=== PATIENT | male | born 1935 | race Caucasian/White ===

== ENCOUNTER → 2018-04-27 13:03 | Outpatient (CLI) | payer MEDICARE, SELFPAY ==
[2018-04-27 14:18] LABS: BUN Creatinine Ratio 15.8 (6-22); Blood Urea Nitrogen 30 mg/dL (9-20); Calcium 9.7 mg/dL (8.4-10.2); Carbon Dioxide 28 mmol/L (22-32); Chloride 109 mmol/L (98-107); Estimated Glomerular Filt Rate 34.1 mL/min (>60); Glucose 106 mg/dL (80-110); HEMOLYSIS 20 (0-50); Potassium 5.1 mmol/L (3.4-5.1); Sodium 144 mmol/L (137-145)
== END ==
PROVIDERS: PCP Internal Medicine; Visit Provider Internal Medicine
DX: N18.3 Chronic kidney disease, stage 3 (moderate) (principal)
CPT/HCPCS: 36415; 80048

== ENCOUNTER → 2018-12-30 16:48 | Outpatient (CLI) | payer MEDICARE, SELFPAY ==
[2018-12-30 18:01] LABS: Alanine Aminotransferase 26 IU/L (21-72); Albumin 3.7 g/dL (3.5-5.0); Albumin Globulin Ratio 1.3 (1.0-2.8); Alkaline Phosphatase 93 U/L (38-126); Aspartate Aminotransferase 23 IU/L (17-59); BUN Creatinine Ratio 18.9 (6-22); Bilirubin Total 0.6 mg/dL (0.2-1.3); Blood Urea Nitrogen 36 mg/dL (9-20); Calcium 9.6 mg/dL (8.4-10.2); Carbon Dioxide 23 mmol/L (22-32); Chloride 108 mmol/L (98-107); Globulin 2.9 g/dL (1.7-4.1); Glucose 150 mg/dL (80-110); HEMOLYSIS < 15 (0-50); Potassium 4.7 mmol/L (3.4-5.1); Sodium 140 mmol/L (137-145); Total Protein 6.6 g/dL (6.3-8.2)
== END ==
PROVIDERS: PCP Internal Medicine; Visit Provider Internal Medicine
DX: I10 Essential (primary) hypertension (principal)
CPT/HCPCS: 36415; 80053

== ENCOUNTER → 2019-02-02 14:48 | Outpatient (CLI) | payer MEDICARE, SELFPAY ==
--- NOTE | 2019-02-02 14:50 | DI.ECHO.S_ITS ---
[facility] +---------+ : : [address] : [address] : : : : [id number] : : : : Phone: [phone] Echocardiogram Report + + :Name: DANIEL TYLER Study Date: 02/02/2019 Height: 73 in : :[facility] Weight: 208 lb : : Gender: Male BSA: 2.2 m2 : :: 1935 Age: 83 yrs BP: 133/64 mmHg: :Reason For Study: DYSPNEA : : Performed By: Javier Blandon : :Referring: KATHERINE WEBER R : + + Interpretation Summary 1) Normal left ventricular thickness, size, wall motion, and systolic function (EF 60-65%). 2) Normal right ventricular size and function. 3) No significant valvular abnormalities. 4) The right ventricular systolic pressure is estimated to be at least 32 mmHg based on an estimated right atrial pressure of 3 mm Hg. 5) No prior Echo available for comparison. Procedure: A two-dimensional transthoracic echocardiogram with color flow and Doppler was performed. The study quality was technically adequate. There is no prior echocardiogram noted for this patient. The patient was in normal sinus rhythm during the exam. The patient had frequent PACs during the exam. The patient had frequent PVCs during the exam. Left Ventricle: The left ventricle is normal in size. There is normal left ventricular wall thickness. The ejection fraction is estimated to be 60-65%. There are no focal wall motion abnormalities. Diastolic parameters suggest a relaxation abnormality of the left ventricle, consistent with probable normal filling pressures. Right Ventricle: The right ventricle is normal in size and function. Atria: The left atrium is moderately dilated. Right atrial size is normal. The interatrial septum is intact with no evidence for an atrial septal defect. Mitral Valve: The mitral valve is normal in structure and function. There is trace mitral regurgitation. Aortic Valve: The aortic valve is trileaflet. The aortic valve is mildly calcified. There is discrete nodular thickening of the left coronary cusp. There is no aortic valve stenosis. No aortic regurgitation is present. Tricuspid Valve: The tricuspid valve is normal in structure and function. There is mild tricuspid regurgitation. The right ventricular systolic pressure is estimated to be at least 32 mmHg based on an estimated right atrial pressure of 3 mm Hg. Pulmonic Valve: The pulmonic valve is normal in structure and function. There is mild pulmonic regurgitation. Great Vessels: The aortic root is normal size. The dimensions of the ascending aorta are normal. The pulmonary artery is normal size. The IVC is of normal diameter and collapses greater than 50% with a sniff. This suggests a low right atrial pressure of 3 mm Hg. Pericardium/ Pleura There is no pericardial effusion. There is no pleural effusion. MMode/2D Measurements & Calculations LVIDd: 3.7 cm LVOT diam: 2.0 cm LVIDs: 2.3 cm Ao root diam: 3.5 cm FS: 36.5 % Aortic Jxn: 2.8 cm EPSS: 0.39 cm asc Aorta Diam: 3.3 cm IVSd: 1.0 cm Ao Arch Diam (Prox Trans): 3.3 cm LVPWd: 0.96 cm LV garcia. diameter/BSA (cm/m^2): 1.7 LV sys. diameter/BSA (cm/m^2): 1.1 LA dimension: 3.3 cm RA long axis: 5.8 cm LA A2 area: 22.3 cm2 RA area: 19.2 cm2 LA A4 area: 24.9 cm2 RA vol: 54.3 ml LA length (vol): 6.2 cm RA : 24.8 ml/m2 LA vol: 76.3 ml IVC diam: 1.2 cm LA vol index: 34.9 ml/m2 Doppler Measurements & Calculations Ao V2 max: 180.1 cm/sec LVOT Max Arsenio: 128.3 cm/sec Ao V2 mean: 134.2 cm/sec LV V1 max P.6 mmHg Ao max P.0 mmHg LV V1 VTI: 27.9 cm Ao mean P.8 mmHg LANNY(I,D): 2.8 cm2 Ao V2 VTI: 32.8 cm LANNY(V,D): 2.3 cm2 sev ratio: 0.85 LANNY indexed to BSA (cm^2/m^2): 1.3 MV E max arsenio: 56.8 cm/sec TR max arsenio: 271.0 cm/sec MV A max arsenio: 75.3 cm/sec TR max P.4 mmHg MV E/A: 0.75 PA V2 max: 104.8 cm/sec Med Peak E' Arsenio: 5.6 cm/sec PA V2 mean: 72.7 cm/sec E/E' med: 10.2 PA mean P.4 mmHg Lat Peak E' Arsenio: 7.3 cm/sec PA pr(Accel): 34.1 mmHg E/E' lat: 7.8 PA Accel Time: 0.07 sec E/e' average: 9.0 MV dec time: 0.27 sec SV(LVOT): 91.0 ml Reading Physician:05:30 PM
== END ==
PROVIDERS: PCP Internal Medicine; Visit Provider Internal Medicine
DX: I07.1 Rheumatic tricuspid insufficiency (principal); I37.1 Nonrheumatic pulmonary valve insufficiency; R06.00 Dyspnea, unspecified
CPT/HCPCS: 93306

== ENCOUNTER → 2020-03-28 10:03 | Outpatient (CLI) | payer MEDICARE, SELFPAY ==
[2020-03-28 12:57] LABS: Alanine Aminotransferase 13 IU/L (<50); Albumin 3.8 g/dL (3.5-5.0); Albumin Globulin Ratio 1.3 (1.0-2.8); Alkaline Phosphatase 92 U/L (38-126); Aspartate Aminotransferase 25 IU/L (17-59); BUN Creatinine Ratio 15.4 (6-22); Bilirubin Total 0.7 mg/dL (0.2-1.3); Blood Urea Nitrogen 29 mg/dL (9-20); Calcium 9.8 mg/dL (8.4-10.2); Carbon Dioxide 24 mmol/L (22-32); Chloride 109 mmol/L (98-107); Cholesterol 164 mg/dL (140-199); Estimated Glomerular Filt Rate 34.4 mL/min (>60); Glucose 102 mg/dL (80-110); HDL Cholesterol 50 mg/dL (40-60); HEMOLYSIS < 15 (0-50); LDL Cholesterol Calculated 96 mg/dL (<100); Potassium 4.8 mmol/L (3.4-5.1); Sodium 140 mmol/L (137-145); Total Protein 6.8 g/dL (6.3-8.2); Triglycerides 89 mg/dL (35-150)
== END ==
PROVIDERS: PCP Internal Medicine; Referring Provider Internal Medicine; Visit Provider Internal Medicine
DX: I10 Essential (primary) hypertension (principal); J84.9 Interstitial pulmonary disease, unspecified; N18.3 Chronic kidney disease, stage 3 (moderate); R73.9 Hyperglycemia, unspecified
CPT/HCPCS: 36415; 80053; 80061

== ENCOUNTER → 2020-04-17 13:58 | Outpatient (CLI) | payer MEDICARE, SELFPAY ==
[2020-04-18 10:09] LABS: COVID19 Sendout Not Detected (Not Detect)
== END ==
PROVIDERS: Family Provider Internal Medicine; PCP Internal Medicine; Visit Provider Physician Assistant
DX: Z11.59 Encounter for screening for other viral diseases (principal)
CPT/HCPCS: 87635

== ENCOUNTER → 2020-04-20 10:36 | Outpatient (CLI) | payer MEDICARE, MEDICAID, SELFPAY ==
--- NOTE | 2020-04-21 09:03 | PM.PFT.1 ---
Pulmonary Function Test Referral & Results Date Patient Seen: 04/20/20 Requesting provider: Franco Palma Indication: Interstitial lung disease Results: The spirometry demonstrates an FVC of 3.61 L which is 76% of predicted. The FEV1 was measured at 3.06 L which is 91% of predicted. The FEV1/FVC ratio was 85 which is 119% of predicted. Following the administration of bronchodilator there was no appreciable change. Lung volumes show an SVC of 3.63 L which is 71 of predicted. The diffusing capacity was measured at 15.29 which is 39% of predicted. No hemoglobin value was provided, so no correction for potential anemia could be made, if appropriate. The maximum voluntary ventilation was normal Interpretation: This study demonstrates essentially normal spirometry but significantly reduced diffusing capacity. Compared to PFTs performed in February 2017, spirometry is unchanged but diffusing capacity has further declined from previous level of 60% of predicted to current 39% of predicted. Clinical correlation suggested
== END ==
PROVIDERS: Family Provider Internal Medicine; PCP Internal Medicine; Referring Provider Internal Medicine; Visit Provider Internal Medicine
DX: J84.89 Other specified interstitial pulmonary diseases (principal); R00.1 Bradycardia, unspecified
CPT/HCPCS: 0296T; 94060; 94726; 94729

== ENCOUNTER → 2020-04-20 12:25 | Outpatient (CLI) | payer MEDICARE, MEDICAID, SELFPAY ==
--- NOTE | 2020-05-10 09:52 | P.HOLT.S_ITS ---
Help Desk Administrator Report Referral & Results Date Patient Seen: 04/20/20 Requesting provider: Franco Palma Indication: bradycardia Duration of monitoring (days): 7 Diary information: there were 6 patient triggered events and no patient diary entries Patient triggered events were associated with sinus rhythm, and PACs. (Computer identified some of these as junctional rhythm but were PACs upon closer review) Data: minimum heart rate was 45 beats per minute at 08:30 on 04/25/2020 Maximum sinus heart rate was 112 beats per minute at 14:14 on 04/26/2020 Maximum overall heart rate was 174 beats per minute at 19:55 on 04/25/2020 during a 5 beat run of nonsustained ventricular tachycardia Patient had approximately 12.3% of identified beats as PACs Less than 1% of identified beats were PVCs Patient to runs of nonsustained ventricular tachycardia the fastest being the 5 beat run at 174 beats per minute as above, this was also the longest run. There are 10 runs of SVT / atrial tachycardia with the fastest being 4 beats at 139 beats per minute the longest being 14 beats at 92 beats per minute which suggest atrial tachycardia Impression: Patient with significant supraventricular dysrhythmias as above. Patient was not overly bradycardic. there were 2 nonsustained runs of possible ventricular tachycardia Clinical correlation suggested
== END ==
PROVIDERS: Family Provider Internal Medicine; PCP Internal Medicine; Referring Provider Internal Medicine; Visit Provider Internal Medicine
DX: R00.1 Bradycardia, unspecified (principal)
CPT/HCPCS: 0296T; 0298T

== ENCOUNTER → 2020-10-30 14:10 | Outpatient (CLI) | payer MEDICARE, MEDICAID, SELFPAY ==
[2020-10-30] MEDS: COVID-19 VACC, Ad26(JANSSEN)/PF 0.5 ML IM (14:23)
== END ==
PROVIDERS: Family Provider Internal Medicine; PCP Internal Medicine; Visit Provider Internal Medicine
DX: Z23 Encounter for immunization (principal)
CPT/HCPCS: 0031A; 91303

== ENCOUNTER 2020-12-24 04:25 | Emergency (ER) | payer MEDICARE, MEDICAID, SELFPAY ==
[2020-12-24] VITALS (9 sets, daily range): BP systolic 116–219; BP diastolic 75–158; PULSE 89–114; RESP 24; O2SAT 95–97; BMI 26.2
--- NOTE | 2020-12-24 04:43 | PC.NURSE ---
Patient states he has not been having adequate indwelling catheter drainage for past few days.
--- NOTE | 2020-12-24 05:32 | ED.MALEGU ---
HPI - Male Genitourinary <Charlie Chisholm MD - Last Filed: 12/24/20 10:01> General Chief complaint: Urogenital-Male Stated complaint: Urinary Cath Pain Time Seen by Provider: 12/24/20 04:46 Source: patient and EMS Mode of arrival: EMS Limitations: no limitations History of Present Illness HPI Narrative: The patient has required a Robertson catheter since 2018. He cannot urinate. The catheter was changed November 29. Over the past couple days he has been having lower abdominal discomfort. He had no urine output out the catheter yesterday, he is here now with severe lower abdominal pain. He has no nausea or vomiting. He has no diarrhea. He has no fever. Related Data Previous Rx's Medication Instructions Recorded hydrocodone 5 mg-acetaminophen 325 See Rx Instructions PO Q4H PRN #30 04/27/20 mg tablet tab lansoprazole 30 mg capsule,delayed 30 mg PO BID #180 cap 04/27/20 release lorazepam 0.5 mg tablet See Rx Instructions .ROUTE 04/27/20 .COMPLEX PRN #30 tab Disabled Parking #1 ea 10/13/20 hydrocortisone 2.5 % topical cream 1 applic IN BID-QID PRN #30 g 12/14/20 with perineal applicator cefdinir 300 mg PO Q12H #20 cap 12/24/20 Allergies Allergy/AdvReac Type Severity Reaction Status Date / Time clindamycin [CLINDAMYCIN] Allergy Mild DIARRHEA Verified 10/13/20 13:31 Sulfa (Sulfonamide Allergy Mild GI UPSET Verified 10/13/20 13:31 Antibiotics) [SULFA (SULFONAMIDE ANTIBIOTICS)] levofloxacin [From LEVAQUIN] Allergy Unknown Verified 10/13/20 13:31 omeprazole [OMEPRAZOLE] Allergy Unknown Verified 10/13/20 13:31 Penicillins [PENICILLINS] Allergy Unknown Verified 10/13/20 13:31 Review of Systems <Charlie Chisholm MD - Last Filed: 12/24/20 10:01> Constitutional Constitutional: Denies chills and Denies fever(s) Cardiovascular Cardiovascular: Denies chest pain, Denies rapid heart rate and Denies pedal edema Respiratory Respiratory: Denies chest congestion and Denies cough Gastrointestinal Comments: Lower abdominal pain. No nausea vomiting or diarrhea. Genitourinary Comments: Decreased urine output. Indwelling Robertson in place. 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 (03/01/11) Chronic renal failure, stage 3 (moderate) (10/14/17) Essential hypertension (03/01/11) History of esophageal stricture (03/01/11) Hydronephrosis, bilateral Hyperglycemia (03/01/11) Hypogonadism in male (08/01/15) Interstitial lung disease (04/22/17) Kidney failure Peripheral neuropathy Right bundle branch block Social History marital status: number of children: 2 household members: spouse lives independently: Yes caregiver/support person: No housing: other (Mobile Home) pets and animals: No education level: other (PhD from [place].) 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 travel history: recent ([place]) leisure activities: fishing and 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, 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, ) Smoking Status: Never smoker Tobacco: How many years used: 0 Smokeless tobacco user: other (Cigarettes, pipe) quit status: quit date established (1956) second hand exposure: Yes alcohol intake: current (Glass of wine with dinner couple times a week, occasional franklyn.) substance use type: does not use Smoking Status: Never smoker alcohol intake frequency: 0-2 drinks per day Alcohol type: wine Substance Use Type: does not use Exam <Charlie Chisholm MD - Last Filed: 12/24/20 10:01> Initial Vital Signs Initial Vital Signs: Vital Signs Pulse Rate 103 H 12/24/20 04:44 Respiratory Rate 24 12/24/20 04:44 Blood Pressure 181/85 H 12/24/20 04:44 Pulse Oximetry 95 12/24/20 04:44 Const General: cooperative and well developed Nutritional Appearance: well nourished Resp Auscultation: clear to auscultation bilaterally Cardio Rate: regular rate Rhythm: regular rhythm Heart Sounds: no click, no gallops, no murmurs and no rubs Pulses: normal peripheral pulses GI Other: Suprapubic tenderness with palpable bladder distention. Abnormal exam is otherwise benign. Other: Robertson is in meatus the penis. There is urine in the Robertson, there is no motion of fluid. The bag is currently empty. Neuro Other: Alert, orient x3. Extrem Other: No lower extremity edema. <Grace Vences DO - Last Filed: 12/24/20 14:18> Initial Vital Signs Initial Vital Signs: Vital Signs Pulse Rate 103 H 12/24/20 04:44 Respiratory Rate 24 12/24/20 04:44 Blood Pressure 181/85 H 12/24/20 04:44 Pulse Oximetry 95 12/24/20 04:44 Course <Charlei Chisholm MD - Last Filed: 12/24/20 10:01> Course Course Narrative: Robertson was placed by the patient's nurse. Patient's care extended beyond the transition at shift change. Dr. Vences was briefed on the patient, she assumed his care and disposition. Orders Ordered: ED Orders 12/24/20 06:10 Urinalysis and Microscopic Stat Urine Culture Stat 12/24/20 07:49 Complete Blood Count AUTO DIFF Stat Comprehensive Metabolic Panel Stat Lactate (Lactic Acid) Stat Procalcitonin Stat 12/24/20 08:15 Blood Culture Stat Discontinued Medications Sodium Chloride (Normal Saline 0.9%) 1,000 mls @ 1,000 mls/hr IV BOLUS ONE Stop: 12/24/20 08:24 Last Infusion: 12/24/20 09:36 Dose: 0 mls/hr Documented by: Admin: 12/24/20 07:58 Dose: 1,000 mls/hr Documented by: ELTON Ceftriaxone Sodium/Dextrose (Rocephin) 1 gm in 50 mls @ 100 mls/hr IV NOW ONE Stop: 12/24/20 07:54 Last Infusion: 12/24/20 09:35 Dose: 0 mls/hr Documented by: Admin: 12/24/20 07:58 Dose: 100 mls/hr Documented by: ELTON Lidocaine HCl (Lidocaine 2% (Glydo) 6 Ml Gel) 6 ml TOP NOW ONE Stop: 12/24/20 05:26 Last Admin: 12/24/20 05:41 Dose: 6 ml Documented by: LUCIA Morphine Sulfate (Morphine 4 Mg/Ml Inj) 4 mg IM NOW ONE Stop: 12/24/20 05:34 Last Admin: 12/24/20 05:37 Dose: 4 mg Documented by: LUCIA Vital Signs Vital signs: Vital Signs - 8 hr 12/24/20 06:30 12/24/20 06:31 Pulse Rate 89 89 Blood Pressure 116/75 Pulse Oximetry 95 96 <Grace Vences DO - Last Filed: 12/24/20 14:18> Orders Ordered: ED Orders 12/24/20 06:10 Urinalysis and Microscopic Stat Urine Culture Stat 12/24/20 07:49 Complete Blood Count AUTO DIFF Stat Comprehensive Metabolic Panel Stat Lactate (Lactic Acid) Stat Procalcitonin Stat 12/24/20 08:15 Blood Culture Stat Discontinued Medications Sodium Chloride (Normal Saline 0.9%) 1,000 mls @ 1,000 mls/hr IV BOLUS ONE Stop: 12/24/20 08:24 Last Infusion: 12/24/20 09:36 Dose: 0 mls/hr Documented by: Admin: 12/24/20 07:58 Dose: 1,000 mls/hr Documented by: ELTON Ceftriaxone Sodium/Dextrose (Rocephin) 1 gm in 50 mls @ 100 mls/hr IV NOW ONE Stop: 12/24/20 07:54 Last Infusion: 12/24/20 09:35 Dose: 0 mls/hr Documented by: Admin: 12/24/20 07:58 Dose: 100 mls/hr Documented by: ELTON Lidocaine HCl (Lidocaine 2% (Glydo) 6 Ml Gel) 6 ml TOP NOW ONE Stop: 12/24/20 05:26 Last Admin: 12/24/20 05:41 Dose: 6 ml Documented by: LUCIA Morphine Sulfate (Morphine 4 Mg/Ml Inj) 4 mg IM NOW ONE Stop: 12/24/20 05:34 Last Admin: 12/24/20 05:37 Dose: 4 mg Documented by: LUCIA Vital Signs Vital signs: Vital Signs - 8 hr 12/24/20 06:30 12/24/20 06:31 Pulse Rate 89 89 Blood Pressure 116/75 Pulse Oximetry 95 96 MDM - Male Genitourinary <Charlie Chisholm MD - Last Filed: 12/24/20 10:01> Lab Data Result diagrams: 12/24/20 07:49 12/24/20 07:49 Labs: Lab Results 12/24/20 12/24/20 12/24/20 Range/Units 06:10 07:49 07:49 WBC 16.7 H (4.5-11.0) X10^3/uL RBC 4.64 (4.5-5.9) X10^6/uL Hgb 14.2 (13.5-17.5) g/dL Hct 42.4 (41-53) % MCV 91.3 (80-100) fL MCH 30.5 (26-34) PG MCHC 33.4 (30-36) % RDW 13.8 (11.6-14.8) % Plt Count 163 (150-400) X10^3/uL Neut % (Auto) 90.8 H (50-75) % Lymph % (Auto) 4.6 L (25-40) % Iz[place] % (Auto) 4.3 (3-14) % Eos % (Auto) 0.1 L (2-4) % Baso % (Auto) 0.2 (0-2) % Neut # (Auto) 17214 H (7762-6917) /uL Lymph # (Auto) 800 L (7665-9954) /uL [place] # (Auto) 700 (0-900) /uL Eos # (Auto) 0 (0-450) /uL Baso # (Auto) 0 (0-100) /uL Sodium 138 (137-145) mmol/L Potassium 4.8 (3.4-5.1) mmol/L Chloride 108 H (98-107) mmol/L Carbon Dioxide 22 (22-32) mmol/L BUN 36 H (9-20) mg/dL Creatinine 2.16 H (0.66-1.25) mg/dL Estimated GFR 29.2 L (>60) mL/min BUN/Creatinine Ratio 16.7 (6-22) Glucose 156 H (80-110) mg/dL Lactate (0.7-2.1) mmol/L Calcium 10.1 (8.4-10.2) mg/dL Total Bilirubin 0.8 (0.2-1.3) mg/dL AST 34 (17-59) IU/L ALT 16 (<50) IU/L Alkaline Phosphatase 90 (38-126) U/L Total Protein 7.3 (6.3-8.2) g/dL Albumin 3.9 (3.5-5.0) g/dL Globulin 3.4 (1.7-4.1) g/dL Albumin/Globulin Ratio 1.1 (1.0-2.8) Procalcitonin 0.16 (<0.5) ng/mL Urine Color Yellow Urine Appearance Cloudy Urine pH 8.5 H (4.5-8.0) Ur Specific [place] 1.020 (1.000-1.035) Urine Protein 3+ H (Negative) Urine Glucose (UA) Negative (Negative) g/dL Urine Ketones Negative (NEGATIVE) Urine Occult Blood 3+ H (Negative) Urine Nitrate Negative (Negative) Urine Bilirubin Negative (NEGATIVE) Urine Urobilinogen 0.2 (0.2) E.U./dL Ur Leukocyte Esterase 2+ H (NEGATIVE) Urine RBC 30-100/hpf H (0-5/HPF) Urine WBC 30-100/hpf H (0-5/HPF) Triple Phos Crystals Few Urine Bacteria Many (>30) H (None) Ur Culture Indicated? Specimen cultured 12/24/20 Range/Units 07:49 WBC (4.5-11.0) X10^3/uL RBC (4.5-5.9) X10^6/uL Hgb (13.5-17.5) g/dL Hct (41-53) % MCV (80-100) fL MCH (26-34) PG MCHC (30-36) % RDW (11.6-14.8) % Plt Count (150-400) X10^3/uL Neut % (Auto) (50-75) % Lymph % (Auto) (25-40) % [place] % (Auto) (3-14) % Eos % (Auto) (2-4) % Baso % (Auto) (0-2) % Neut # (Auto) (0711-5952) /uL Lymph # (Auto) (4146-0528) /uL [place] # (Auto) (0-900) /uL Eos # (Auto) (0-450) /uL Baso # (Auto) (0-100) /uL Sodium (137-145) mmol/L Potassium (3.4-5.1) mmol/L Chloride (98-107) mmol/L Carbon Dioxide (22-32) mmol/L BUN (9-20) mg/dL Creatinine (0.66-1.25) mg/dL Estimated GFR (>60) mL/min BUN/Creatinine Ratio (6-22) Glucose (80-110) mg/dL Lactate 1.4 (0.7-2.1) mmol/L Calcium (8.4-10.2) mg/dL Total Bilirubin (0.2-1.3) mg/dL AST (17-59) IU/L ALT (<50) IU/L Alkaline Phosphatase (38-126) U/L Total Protein (6.3-8.2) g/dL Albumin (3.5-5.0) g/dL Globulin (1.7-4.1) g/dL Albumin/Globulin Ratio (1.0-2.8) Procalcitonin (<0.5) ng/mL Urine Color Urine Appearance Urine pH (4.5-8.0) Ur Specific [place] (1.000-1.035) Urine Protein (Negative) Urine Glucose (UA) (Negative) g/dL Urine Ketones (NEGATIVE) Urine Occult Blood (Negative) Urine Nitrate (Negative) Urine Bilirubin (NEGATIVE) Urine Urobilinogen (0.2) E.U./dL Ur Leukocyte Esterase (NEGATIVE) Urine RBC (0-5/HPF) Urine WBC (0-5/HPF) Triple Phos Crystals Urine Bacteria (None) Ur Culture Indicated? <Grace Vences, DO - Last Filed: 12/24/20 14:18> Lab Data Labs: Lab Results 12/24/20 12/24/20 12/24/20 Range/Units 06:10 07:49 07:49 WBC 16.7 H (4.5-11.0) X10^3/uL RBC 4.64 (4.5-5.9) X10^6/uL Hgb 14.2 (13.5-17.5) g/dL Hct 42.4 (41-53) % MCV 91.3 (80-100) fL MCH 30.5 (26-34) PG MCHC 33.4 (30-36) % RDW 13.8 (11.6-14.8) % Plt Count 163 (150-400) X10^3/uL Neut % (Auto) 90.8 H (50-75) % Lymph % (Auto) 4.6 L (25-40) % [place] % (Auto) 4.3 (3-14) % Eos % (Auto) 0.1 L (2-4) % Baso % (Auto) 0.2 (0-2) % Neut # (Auto) 37786 H (2821-8250) /uL Lymph # (Auto) 800 L (3632-1504) /uL [place] # (Auto) 700 (0-900) /uL Eos # (Auto) 0 (0-450) /uL Baso # (Auto) 0 (0-100) /uL Sodium 138 (137-145) mmol/L Potassium 4.8 (3.4-5.1) mmol/L Chloride 108 H (98-107) mmol/L Carbon Dioxide 22 (22-32) mmol/L BUN 36 H (9-20) mg/dL Creatinine 2.16 H (0.66-1.25) mg/dL Estimated GFR 29.2 L (>60) mL/min BUN/Creatinine Ratio 16.7 (6-22) Glucose 156 H (80-110) mg/dL Lactate (0.7-2.1) mmol/L Calcium 10.1 (8.4-10.2) mg/dL Total Bilirubin 0.8 (0.2-1.3) mg/dL AST 34 (17-59) IU/L ALT 16 (<50) IU/L Alkaline Phosphatase 90 (38-126) U/L Total Protein 7.3 (6.3-8.2) g/dL Albumin 3.9 (3.5-5.0) g/dL Globulin 3.4 (1.7-4.1) g/dL Albumin/Globulin Ratio 1.1 (1.0-2.8) Procalcitonin 0.16 (<0.5) ng/mL Urine Color Yellow Urine Appearance Cloudy Urine pH 8.5 H (4.5-8.0) Ur Specific [place] 1.020 (1.000-1.035) Urine Protein 3+ H (Negative) Urine Glucose (UA) Negative (Negative) g/dL Urine Ketones Negative (NEGATIVE) Urine Occult Blood 3+ H (Negative) Urine Nitrate Negative (Negative) Urine Bilirubin Negative (NEGATIVE) Urine Urobilinogen 0.2 (0.2) E.U./dL Ur Leukocyte Esterase 2+ H (NEGATIVE) Urine RBC 30-100/hpf H (0-5/HPF) Urine WBC 30-100/hpf H (0-5/HPF) Triple Phos Crystals Few Urine Bacteria Many (>30) H (None) Ur Culture Indicated? Specimen cultured 12/24/20 Range/Units 07:49 WBC (4.5-11.0) X10^3/uL RBC (4.5-5.9) X10^6/uL Hgb (13.5-17.5) g/dL Hct (41-53) % MCV (80-100) fL MCH (26-34) PG MCHC (30-36) % RDW (11.6-14.8) % Plt Count (150-400) X10^3/uL Neut % (Auto) (50-75) % Lymph % (Auto) (25-40) % [place] % (Auto) (3-14) % Eos % (Auto) (2-4) % Baso % (Auto) (0-2) % Neut # (Auto) (8622-1306) /uL Lymph # (Auto) (7637-8982) /uL [place] # (Auto) (0-900) /uL Eos # (Auto) (0-450) /uL Baso # (Auto) (0-100) /uL Sodium (137-145) mmol/L Potassium (3.4-5.1) mmol/L Chloride (98-107) mmol/L Carbon Dioxide (22-32) mmol/L BUN (9-20) mg/dL Creatinine (0.66-1.25) mg/dL Estimated GFR (>60) mL/min BUN/Creatinine Ratio (6-22) Glucose (80-110) mg/dL Lactate 1.4 (0.7-2.1) mmol/L Calcium (8.4-10.2) mg/dL Total Bilirubin (0.2-1.3) mg/dL AST (17-59) IU/L ALT (<50) IU/L Alkaline Phosphatase (38-126) U/L Total Protein (6.3-8.2) g/dL Albumin (3.5-5.0) g/dL Globulin (1.7-4.1) g/dL Albumin/Globulin Ratio (1.0-2.8) Procalcitonin (<0.5) ng/mL Urine Color Urine Appearance Urine pH (4.5-8.0) Ur Specific [place] (1.000-1.035) Urine Protein (Negative) Urine Glucose (UA) (Negative) g/dL Urine Ketones (NEGATIVE) Urine Occult Blood (Negative) Urine Nitrate (Negative) Urine Bilirubin (NEGATIVE) Urine Urobilinogen (0.2) E.U./dL Ur Leukocyte Esterase (NEGATIVE) Urine RBC (0-5/HPF) Urine WBC (0-5/HPF) Triple Phos Crystals Urine Bacteria (None) Ur Culture Indicated? MDM Narrative Medical decision making narrative: I have seen and evaluated patient myself received sign-out from Dr. Chisholm. Catheter has been changed it is extremely foul smelling is with gross pus on the catheter that was changed. He continues to have some mild abdominal discomfort. At this time we will order blood work he is afebrile but has multiple antibiotic allergies. He does have leukocytosis of 16,000 however normal lactate and hemodynamically stable. Creatinine is slightly more elevated however he has had creatinine of to in the past. At this time appropriate for outpatient treatment discussed warning signs with him and when to return to the ED. He overall appears well. He was given 1 dose of Rocephin in the ED and a prescription sent Discharge Plan Departure Patient Disposition: Home Clinical Impression: Urinary tract infection Qualifiers: Urinary tract infection type: catheter-associated UTI Indwelling urinary catheter type: indwelling urethral catheter Encounter type: initial encounter Qualified Code(s): T83.511A - Infection and inflammatory reaction due to indwelling urethral catheter, initial encounter Instructions: DI for Urinary Tract Infection (UTI) Activity Restrictions/Additional Instructions: *You have been diagnosed with UTI *What to do: It appears that you have an infection. Your catheter was changed today any received 1 dose of Rocephin through the IV *Continue to take medications as directed Cefdinir 300 mg twice a day for 7 days--> SENT TO [facility] *Follow up with your primary care provider in 2-3 days *Return to ER if you should have increasing abdominal pain, confusion, fever or any new, worsening or concerning symptoms Prescriptions: New cefdinir 300 mg capsule 300 mg PO Q12H Qty: 20 RF: 0 No Action hydrocodone-acetaminophen [[place]] 5-325 mg tablet See Rx Instructions PO Q4H PRN (Reason: back pain) Qty: 30 RF: 0 lansoprazole 30 mg capsule,delayed release(DR/EC) 30 mg PO BID Qty: 180 RF: 3 lorazepam 0.5 mg tablet See Rx Instructions .ROUTE .COMPLEX PRN (Reason: anxiety) Qty: 30 RF: 0 hydrocortisone [Proctosol HC] 2.5 % cream with perineal applicator 1 applic IN BID-QID PRN (Reason: hemorrhoids) Qty: 30 RF: 1 (DME) Disabled Parking See Rx Instructions .ROUTE .MEDSUPPLY Qty: 1 RF: 0 Referrals: Franco Palma MD [Primary Care Provider] -
[2020-12-24] MEDS: MORPHINE 4 MG/ML INJ IM (05:37)
[2020-12-24] MEDS: LIDOCAINE 2% (GLYDO) 6 ML GEL TOP (05:41)
[2020-12-24 06:24] LABS: Appearance Urine UA CLOUDY; Bilirubin Urine UA NEGATIVE (NEGATIVE); Color Urine UA YELLOW; Glucose Urine UA NEGATIVE (Negative); Ketones Urine UA NEGATIVE (NEGATIVE); Leukocyte Esterase Urine UA 2+ (NEGATIVE); Nitrite Urine UA NEGATIVE (Negative); Occult Blood Urine UA 3+ (Negative); Protein Urine UA 3+ (Negative); Urobilinogen Urine UA 0.2 E.U./dL (0.2); pH Urine UA 8.5 (4.5-8.0)
[2020-12-24 06:43] LABS: RBC Urine 30-100/HPF (0-5/HPF); WBC Urine 30-100/HPF (0-5/HPF)
[2020-12-24 06:44] LABS: Bacteria Urine Many (>30); Culture Indicated Urine Specimen Cultured; Triple Phosphate Crystal Urine Few
[2020-12-24] MEDS: CEFTRIAXONE 1 GM/50 ML FROZ.PIGGY IV (07:58)
[2020-12-24] MEDS: SODIUM CHLORIDE 0.9% 1,000 ML 1000 ML IV (07:58)
[2020-12-24 08:06] LABS: Add Manual Diff / Slide Review NO; Basophils Absolute Auto 0 /uL (0-100); Basophils Percent Auto 0.2 % (0-2); Eosinophils Absolute Auto 0 /uL (0-450); Eosinophils Percent Auto 0.1 % (2-4); Hematocrit 42.4 % (41-53); Hemoglobin 14.2 g/dL (13.5-17.5); Lymphocytes Absolute Auto 800 /uL (1100-4500); Lymphocytes Percent Auto 4.6 % (25-40); Mean Corpuscular HGB Conc 33.4 % (30-36); Mean Corpuscular Hemoglobin 30.5 PG (26-34); Mean Corpuscular Volume 91.3 fL (80-100); Monocytes Absolute Auto 700 /uL (0-900); Monocytes Percent Auto 4.3 % (3-14); Neutrophils Absolute Auto 15200 /uL (1500-7000); Neutrophils Percent Auto 90.8 % (50-75); Platelet Count 163 X10^3/uL (150-400); Red Blood Cell Count 4.64 X10^6/uL (4.5-5.9); Red Cell Distribution Width 13.8 % (11.6-14.8); White Blood Cell Count 16.7 X10^3/uL (4.5-11.0)
[2020-12-24 08:21] LABS: Alanine Aminotransferase 16 IU/L (<50); Albumin 3.9 g/dL (3.5-5.0); Albumin Globulin Ratio 1.1 (1.0-2.8); Alkaline Phosphatase 90 U/L (38-126); Aspartate Aminotransferase 34 IU/L (17-59); BUN Creatinine Ratio 16.7 (6-22); Bilirubin Total 0.8 mg/dL (0.2-1.3); Blood Urea Nitrogen 36 mg/dL (9-20); Calcium 10.1 mg/dL (8.4-10.2); Carbon Dioxide 22 mmol/L (22-32); Chloride 108 mmol/L (98-107); Estimated Glomerular Filt Rate 29.2 mL/min (>60); Globulin 3.4 g/dL (1.7-4.1); Glucose 156 mg/dL (80-110); HEMOLYSIS < 15 (0-50); Potassium 4.8 mmol/L (3.4-5.1); Sodium 138 mmol/L (137-145); Total Protein 7.3 g/dL (6.3-8.2)
[2020-12-24 08:27] LABS: Lactate (Lactic Acid) 1.4 mmol/L (0.7-2.1)
[2020-12-24 08:38] LABS: Procalcitonin 0.16 ng/mL (<0.5)
[2020-12-25 07:30] LABS: Acinetobacter baumannii Not Detected (Not Detect); Enterococcus species Not Detected (Not Detect); KPC (carbapenem-resist gene) Not Detected (Not Detect); Listeria monocytogenes Not Detected (Not Detect); Staphylococcus species Not Detected (Not Detect); Streptococcus agalactiae (Gr B Not Detected (Not Detect); Streptococcus pneumonia Not Detected (Not Detect); Streptococcus pyogenes (Gr A) Not Detected (Not Detect); Streptococcus species Not Detected (Not Detect)
[2020-12-25 07:31] LABS: Candida albicans Not Detected (Not Detect); Candida glabrata Not Detected (Not Detect); Candida krusei Not Detected (Not Detect); Candida parapsilosis Not Detected (Not Detect); Candida tropicalis Not Detected (Not Detect); E. coli Not Detected (Not Detect); Enterobacter cloacae complex Not Detected (Not Detect); Enterobacteriaceae species Detected (Not Detect); Haemophilus influenzae Not Detected (Not Detect); Neisseria meningitidis Not Detected (Not Detect); Proteus species Not Detected (Not Detect); Pseudomonas aeruginosa Not Detected (Not Detect); Serratia marcescens Not Detected (Not Detect)
== END 2020-12-24 09:35 | disposition home or self-care (01) ==
PROVIDERS: Emergency Medicine; Emergency Provider Emergency Medicine; Family Provider Internal Medicine; PCP Internal Medicine
DX: T83.511A Infection and inflammatory reaction due to indwelling urethral catheter, initial encounter (principal)
CPT/HCPCS: 36415; 51701; 51705; 80053; 81001; 83605; 84145; 85025; 87040; 87077; 87086; 87150; 87186; 87205; 96365; 96366; 96372; 99284; J2270

== ENCOUNTER → 2021-04-05 14:03 | Outpatient (CLI) | payer MEDICARE, MEDICAID, SELFPAY ==
[2021-04-05 14:31] LABS: Add Manual Diff / Slide Review NO; Basophils Absolute Auto 100 /uL (0-100); Basophils Percent Auto 0.9 % (0-2); Eosinophils Absolute Auto 500 /uL (0-450); Hematocrit 39.3 % (41-53); Hemoglobin 13.1 g/dL (13.5-17.5); Lymphocytes Absolute Auto 1600 /uL (1100-4500); Lymphocytes Percent Auto 21.2 % (25-40); Mean Corpuscular HGB Conc 33.5 % (30-36); Mean Corpuscular Hemoglobin 30.6 PG (26-34); Mean Corpuscular Volume 91.4 fL (80-100); Monocytes Absolute Auto 700 /uL (0-900); Monocytes Percent Auto 9.1 % (3-14); Neutrophils Absolute Auto 4600 /uL (1500-7000); Neutrophils Percent Auto 61.8 % (50-75); Platelet Count 170 X10^3/uL (150-400); Red Cell Distribution Width 13.8 % (11.6-14.8); White Blood Cell Count 7.5 X10^3/uL (4.5-11.0)
[2021-04-05 15:04] LABS: Erythrocyte Sedimentation Rate 25 MM/HR (0-15)
[2021-04-05 15:16] LABS: Alanine Aminotransferase 12 IU/L (<50); Albumin 3.9 g/dL (3.5-5.0); Albumin Globulin Ratio 1.3 (1.0-2.8); Alkaline Phosphatase 85 U/L (38-126); Aspartate Aminotransferase 25 IU/L (17-59); BUN Creatinine Ratio 12.5 (6-22); Bilirubin Total 0.6 mg/dL (0.2-1.3); Blood Urea Nitrogen 24 mg/dL (9-20); C-Reactive Protein Quant 0.6 mg/dL (<1.0); Calcium 9.7 mg/dL (8.4-10.2); Carbon Dioxide 23 mmol/L (22-32); Chloride 109 mmol/L (98-107); Estimated Glomerular Filt Rate 33.5 mL/min (>60); Glucose 105 mg/dL (80-110); HEMOLYSIS < 15 (0-50); Potassium 4.4 mmol/L (3.4-5.1); Sodium 139 mmol/L (137-145); Total Protein 6.9 g/dL (6.3-8.2)
== END ==
PROVIDERS: Family Provider Internal Medicine; PCP Internal Medicine; Referring Provider Internal Medicine; Visit Provider Internal Medicine
DX: I10 Essential (primary) hypertension (principal); J84.9 Interstitial pulmonary disease, unspecified; N31.2 Flaccid neuropathic bladder, not elsewhere classified; R73.9 Hyperglycemia, unspecified; N18.30 Chronic kidney disease, stage 3 unspecified
CPT/HCPCS: 36415; 80053; 85025; 85651; 86140

== ENCOUNTER → 2021-07-05 14:27 | Outpatient (CLI) | payer MEDICARE, MEDICAID, SELFPAY ==
--- NOTE | 2021-07-05 14:29 | DI.RAD.S_ITS ---
PROCEDURE: XR CHEST 2V INDICATIONS: ILD, TECHNIQUE: 2 views of the chest were acquired. COMPARISON: [facility], , CHEST 2 VIEW, 10/20/2017, 15:10. FINDINGS: Surgical changes and devices: None. Lungs and pleura: No significant interval change in diffuse, widespread bilateral interstitial opacities compared to prior chest radiograph.. No pleural effusions or pneumothorax. Mediastinum: Mediastinal contours are normal. Heart size is normal. Bones and chest wall: No suspicious bony abnormalities. Soft tissues appear unremarkable. IMPRESSION: 1. Chronic interstitial fibrosis having a similar appearance to prior chest radiograph dated 10/20/2017 and no definitive superimposed acute densities are appreciated; however given the degree of fibrosis, subtle infection could be easily missed. Dictated by: Alexi Obrien RRA Interpreted: Ethan Ham MD on 07/05/2021 at 14:42 Approved by: Ethan Ham M.D. on 07/05/2021 at 16:11
== END ==
PROVIDERS: Family Provider Internal Medicine; PCP Internal Medicine; Referring Provider Internal Medicine; Visit Provider Internal Medicine
DX: J84.10 Pulmonary fibrosis, unspecified (principal); R06.00 Dyspnea, unspecified
CPT/HCPCS: 71046

== ENCOUNTER → 2022-03-25 15:08 | Outpatient (CLI) | payer MEDICARE, MEDICAID, SELFPAY ==
[2022-03-25 16:18] LABS: Add Manual Diff / Slide Review NO; Basophils Absolute Auto 100 /uL (0-100); Basophils Percent Auto 1.1 % (0-2); Eosinophils Absolute Auto 600 /uL (0-450); Eosinophils Percent Auto 8.1 % (2-4); Hematocrit 36.3 % (41-53); Hemoglobin 12.6 g/dL (13.5-17.5); Lymphocytes Absolute Auto 1700 /uL (1100-4500); Lymphocytes Percent Auto 22.4 % (25-40); Mean Corpuscular HGB Conc 34.8 % (30-36); Mean Corpuscular Hemoglobin 31.4 PG (26-34); Mean Corpuscular Volume 90.3 fL (80-100); Monocytes Absolute Auto 600 /uL (0-900); Monocytes Percent Auto 8.4 % (3-14); Neutrophils Absolute Auto 4500 /uL (1500-7000); Platelet Count 162 X10^3/uL (150-400); Red Blood Cell Count 4.02 X10^6/uL (4.5-5.9); White Blood Cell Count 7.5 X10^3/uL (4.5-11.0)
[2022-03-25 16:43] LABS: Alanine Aminotransferase 11 IU/L (<50); Albumin 3.6 g/dL (3.5-5.0); Albumin Globulin Ratio 1.2 (1.0-2.8); Alkaline Phosphatase 75 U/L (38-126); Aspartate Aminotransferase 22 IU/L (17-59); BUN Creatinine Ratio 15.1 (6-22); Bilirubin Total 0.6 mg/dL (0.2-1.3); Blood Urea Nitrogen 26 mg/dL (9-20); Carbon Dioxide 24 mmol/L (22-32); Chloride 101 mmol/L (98-107); Estimated Glomerular Filt Rate 38 mL/min (>60); Glucose 103 mg/dL (80-110); HEMOLYSIS 23 (0-50); Potassium 4.6 mmol/L (3.4-5.1); Sodium 137 mmol/L (137-145); Total Protein 6.6 g/dL (6.3-8.2)
[2022-03-25 17:09] LABS: Thyroid Stimulating Hormone 4.45 uIU/mL (0.47-4.68)
== END ==
PROVIDERS: Family Provider Internal Medicine; PCP Internal Medicine; Referring Provider Internal Medicine; Visit Provider Internal Medicine
DX: I10 Essential (primary) hypertension (principal); N18.30 Chronic kidney disease, stage 3 unspecified
CPT/HCPCS: 36415; 80053; 84443; 85025